=== PATIENT | female | born 1955 | race Caucasian/White ===

== ENCOUNTER → 2016-07-06 | Outpatient (CLI) | payer BC | LOC: CT 13:09 | DX: R91.8 Other nonspecific abnormal finding of lung field (principal) | CPT/HCPCS: 71250 ==

== ENCOUNTER → 2020-04-22 | Outpatient (CLI) | payer BC | LOC: KOH-I 09:32 | DX: M77.9 Enthesopathy, unspecified (principal) | CPT/HCPCS: 73630 ==